=== PATIENT | male | born 1995 | race African-American/Black ===

== ENCOUNTER 2024-01-06 17:31 | Emergency (ER) | payer BC ==
[~2024-01-06] VITALS: Ht 177.8 cm; Wt 72.6 kg
[2024-01-06 17:45] VITALS: BP 115/72; TEMP 98.2; O2SAT 100
--- NOTE | 2024-01-06 17:52 | NUR ---
WALKING WITH CRUTCHES BACK TO TO WAIT FOR ER BED WITH STEADY GAIT
--- NOTE | 2024-01-06 18:15 | NUR ---
RECEIVED PT 28 YRS MALE CAME FORM HOME C/O PAIN ON RT LEG AND HX FX AND WITH LONG CAST ON LT LEG
--- NOTE | 2024-01-06 19:23 | NUR ---
US AT BED SIDE
--- NOTE | 2024-01-06 19:25 | NUR ---
HAND OFF EDGAR AMBRIZ
--- NOTE | 2024-01-06 19:46 | NUR ---
Patient discharged to home in stable condition. Written and verbal after care instructions given. Patient verbalizes understanding of instruction.
== END 2024-01-06 19:46 | disposition home or self-care (01) ==
LOC: ER 17:32
DX: R20.2 Paresthesia of skin (principal); M79.604 Pain in right leg; Z87.81 Personal history of (healed) traumatic fracture; Z60.2 Problems related to living alone
CPT/HCPCS: 93971-TC